=== PATIENT | male | born 1955 | race Caucasian/White ===

== ENCOUNTER → 2018-06-23 | Outpatient (CLI) | payer BC ==
[2016-02-15 19:42] VITALS: BP 128/81
[~2018-06-23] MED LIST: AMOX1TAB61 PO; ASPI-630 PO; HYDR12.58 PO; INSU100I11 SQ; INSU100I13 SQ; IOHEXOL 240 MG/ML 50ML VIAL. ONE; IOHEXOL 240 MG/ML 50ML VIAL. PO ONE; IOHEXOL 300 MG/ML 75 ML VIAL. IV ONE; LACT1CAP19 PO; LEVO500T59 PO; LISI1TAB7 PO; METR-34 PO; MULT-245 PO; SIMV40TA3 PO
--- NOTE | 2018-06-23 11:46 | RAD ---
CT of the abdomen and pelvis with contrast, 06/23/2018: HISTORY: Left lower quadrant pain, diverticulitis Multidetector CT imaging was performed following oral and IV administration of contrast. Comparison is made to a study from 02/14/2016. No hepatic abnormality is detected. The gallbladder is unremarkable. The pancreas shows no abnormality. The spleen is of normal size. There are 2 left renal cysts, the largest of which measures 3 cm and arises in the upper pole. There are 2 left intrarenal calculi. The largest of these lies in the lower pole collecting system and measures 1.5 cm. No right renal calculi are seen. There is no evidence of renal or ureteral obstruction. There is mild aortic calcific plaquing without evidence of aneurysm. No abdominal or pelvic adenopathy is seen. Again noted is moderate prostatic enlargement. The bowel loops are not dilated. There is mild streaky increased density in the paracolic fat related to the distal descending and proximal sigmoid colon. There are underlying diverticula. The appearance is compatible with inflammation due to diverticulitis. This has progressed since the previous study. No discrete paracolic fluid collection is seen to suggest abscess. No free air is evident in the abdomen or pelvis. A small thin-walled fluid collection is again noted in the upper pelvis on the right adjacent to distal ileal loops. It measures approximately 3.5 cm in greatest dimension and is unchanged in size as best demonstrated on the coronal views. Moderate scattered degenerative changes are present in the spine. There is mild unchanged loss of height of the L4 vertebral body. IMPRESSION: 1. Acute diverticulitis at the junction of the descending and sigmoid colon. 2. Stable small thin-walled fluid collection in the upper pelvis on the right with diagnostic considerations including an old seroma/hematoma or developmental cyst. 3. Nonobstructing left intrarenal calculi. 4. Moderate nonspecific prostatic enlargement. PQRS Compliance Statement: One or more of the following individualized dose reduction techniques were utilized for this examination: 1. Automated exposure control 2. Adjustment of the mA and/or kV according to patient size 3. Use of iterative reconstruction technique Electronically signed by: Otf Gracia MD (06/23/2018 11:43 AM) [facility]
== END | disposition home or self-care (01) ==
LOC: CT 08:42
PROVIDERS: ATTEND Nurse Practitioner Family
DX: N20.0 Calculus of kidney (principal); K57.32 Diverticulitis of large intestine without perforation or abscess without bleeding; N40.0 Benign prostatic hyperplasia without lower urinary tract symptoms; N28.1 Cyst of kidney, acquired
CPT/HCPCS: 74177; Q9966; Q9967

== ENCOUNTER 2018-06-24 13:33 | Inpatient (IN) | payer BC ==
[~2018-06-24] VITALS: Ht 193 cm; Wt 107.3 kg
[~2018-06-24 13:33] MED LIST changes: -AMOX1TAB61 PO; -INSU100I11 SQ; -INSU100I13 SQ; -IOHEXOL 240 MG/ML 50ML VIAL. ONE; -IOHEXOL 240 MG/ML 50ML VIAL. PO ONE; -IOHEXOL 300 MG/ML 75 ML VIAL. IV ONE; -LACT1CAP19 PO; -LISI1TAB7 PO; -MULT-245 PO
[2018-06-24 13:57] VITALS: BP 116/69
--- NOTE | 2018-06-24 14:28 | NUR ---
NSG NOTE; ADMISSION DIRECT ADMIT TO ROOM 107 AT 1342 VIA AMB ACCOMP BY FROM HOME. PT HAS HAD LEFT FLANK, LUQ ABD PAIN X 3 DAYS, WAS SEEN IN THE OFFICE YESTERDAY AND WAS SENT TO [facility] FOR A CT ABD PT WAS CALLED WITH THE RESULTS TODAY AND WAS SENT TO [facility] FOR AN INPT ADMISSION
[2018-06-24] MEDS ORDERED: MAG HYDROX/AL HYDROX/SIMETH 30 ML ORAL.SUSP PO PRN (14:45)
[2018-06-24] MEDS ORDERED: ACETAMINOPHEN 500 MG TABLET PO PRN (14:45)
[2018-06-24] MEDS ORDERED: ONDANSETRON PF 4 MG/2 ML VIAL. IV PRN (14:45)
[2018-06-24 14:55] LABS: BASO % 0 % (0-3); EOS # 0.1 x10^3/uL (0.0-0.7); EOS % 1 % (0-3); HEMATOCRIT 45.4 % (39.0-53.0); HEMOGLOBIN 15.3 g/dL (13.0-17.5); LYMPH # 1.1 x10^3/uL (1.0-4.8); LYMPH % 11 % (24-48); MEAN CORPUSCULAR HEMOGLOBIN 29 pg (25-35); MEAN CORPUSCULAR HGB CONC 34 g/dL (31-37); MEAN CORPUSCULAR VOLUME 86 fL (79-100); MONO # 0.8 x10^3/uL (0.0-1.1); MONO % 8 % (0-9); NEUT # 7.8 x10^3uL (1.8-7.7); NEUT % 79 % (31-73); PLATELET COUNT 276 x10^3/uL (140-400); RED CELL DISTRIBUTION WIDTH 13.2 % (11.5-14.5); WHITE BLOOD COUNT 9.8 x10^3/uL (4.0-11.0)
[2018-06-24 15:12] LABS: ALBUMIN 3.4 g/dL (3.4-5.0); ALBUMIN/GLOBULIN RATIO 0.8 (1.0-1.7); CALCIUM 9.1 mg/dL (8.5-10.1); CREATININE 0.7 mg/dL (0.7-1.3); GFR 114.6; POTASSIUM 4.2 mmol/L (3.5-5.1); TOTAL BILIRUBIN 0.8 mg/dL (0.2-1.0); TOTAL PROTEIN 7.7 g/dL (6.4-8.2)
[2018-06-24] MEDS: IV NORMAL SALINE 1,000ML 1,000 ML IV SCH (15:44)
[2018-06-24] MEDS ORDERED: DEXTROSE 50% 25 GM / 50ML DISP.SYRIN. IV PRN (15:45)
[2018-06-24] MEDS ORDERED: LISI1TAB7 PO (16:17)
[2018-06-24] MEDS ORDERED: METR-34 PO (16:21)
[2018-06-24] MEDS ORDERED: AMOX1TAB61 PO (16:21)
[2018-06-24] MEDS ORDERED: MULT-245 PO (16:21)
[2018-06-24] MEDS ORDERED: ZOLPIDEM 5 MG TABLET. PO PRN (17:00)
[2018-06-24] MEDS: INSULIN LISPRO 300 UNITS/3 ML INSULN.PEN. SQ SCH (17:00)
[2018-06-24 19:32] VITALS: BP 119/75
[2018-06-24] MEDS: SIMVASTATIN 40 MG TABLET. PO SCH (21:44)
[2018-06-24 22:50] VITALS: BP 116/75
[2018-06-25 02:08] LABS: HEMOGLOBIN A1C 12.9 % (4.8-5.6)
[2018-06-25] MEDS: IV NORMAL SALINE 1,000ML 1,000 ML IV SCH ×3 (04:32→20:45)
[2018-06-25 05:25] VITALS: BP 127/82
[2018-06-25 06:50] LABS: BASO # 0.1 x10^3/uL (0.0-0.2); BASO % 1 % (0-3); EOS # 0.2 x10^3/uL (0.0-0.7); EOS % 3 % (0-3); HEMATOCRIT 42.3 % (39.0-53.0); HEMOGLOBIN 14.5 g/dL (13.0-17.5); LYMPH # 1.7 x10^3/uL (1.0-4.8); LYMPH % 23 % (24-48); MEAN CORPUSCULAR HEMOGLOBIN 29 pg (25-35); MEAN CORPUSCULAR HGB CONC 34 g/dL (31-37); MEAN CORPUSCULAR VOLUME 85 fL (79-100); MONO # 0.8 x10^3/uL (0.0-1.1); MONO % 12 % (0-9); NEUT # 4.4 x10^3uL (1.8-7.7); NEUT % 61 % (31-73); PLATELET COUNT 258 x10^3/uL (140-400); RED BLOOD COUNT 4.96 x10^6/uL (4.30-5.70); WHITE BLOOD COUNT 7.2 x10^3/uL (4.0-11.0)
[2018-06-25 07:00] LABS: CALCIUM 8.7 mg/dL (8.5-10.1); CREATININE 0.7 mg/dL (0.7-1.3); GFR 114.6; POTASSIUM 4.3 mmol/L (3.5-5.1)
[2018-06-25] MEDS: MULTIVITAMIN with MINERAL TABLET. PO SCH (08:10)
[2018-06-25] MEDS: LISINOPRIL 20 MG TABLET PO SCH (08:10)
[2018-06-25] MEDS: ASPIRIN 81 MG TAB.CHEW PO SCH (08:10)
[2018-06-25] MEDS: hydroCHLOROthiazide 25 MG TABLET PO SCH (08:10)
[2018-06-25] MEDS: INSULIN LISPRO 300 UNITS/3 ML INSULN.PEN. SQ SCH ×3 (08:17→17:00)
[2018-06-25 10:44] VITALS: BP 123/77
--- NOTE | 2018-06-25 10:55 | PN ---
DATE: 06/25/2018 SUBJECTIVE: A 63-year-old male in with sigmoid diverticulitis and also new onset of diabetes. Sugar is up in the 300s and his A1c of 12.5. The patient is receiving IV antibiotic therapy. He is feeling a little bit better this morning. We are getting the sugars down in the lower 200s with insulin of course. He is also getting a great deal of fluid as he was markedly dehydrated. See labs from the office in his H and P. Otherwise, I had a long discussion with him and his about diabetes, diverticulitis, and so forth. I answered all their questions. OBJECTIVE: VITAL SIGNS: The patient's blood pressure this morning 127/82, respiratory rate 18, pulse 61, afebrile. GENERAL: The patient is alert and oriented. LUNGS: Diminished, but clear. CARDIOVASCULAR: Regular sinus rhythm. ABDOMEN: Soft, less tender than he was yesterday. EXTREMITIES: No clubbing, cyanosis, or edema. NEUROLOGIC: Intact. The patient says he has been having this problem since Lazarus time of weight loss and polyuria. In any case, the patient is making good progress. IMPRESSION: Acute diverticulitis, new onset of diabetes, ketonuria. PLAN: Continue to monitor the patient accordingly to make further evaluation on him as indicated with IV antibiotic therapy, insulin, diabetic teaching. NEVILLE FITZPATRICK MD DR: ALEXEY/meaghan JOB#: [id number] / [id number]
[2018-06-25] MEDS: INSULIN GLARGINE 300 UNITS/3 ML INSULN.PEN. SQ SCH ×2 (12:32→21:28)
[2018-06-25 15:19] VITALS: BP 121/77
[2018-06-25 19:20] VITALS: BP 116/76
[2018-06-25] MEDS: SIMVASTATIN 40 MG TABLET. PO SCH (21:18)
[2018-06-25] MEDS: LACTOBACILLUS RHAMNOSUS GG 1 CAPSULE. PO SCH (21:18)
[2018-06-26 00:13] VITALS: BP 109/77
[2018-06-26] MEDS: IV NORMAL SALINE 1,000ML 1,000 ML IV SCH (05:16)
[2018-06-26 07:10] VITALS: BP 111/74
[2018-06-26 08:35] VITALS: BP 111/74
[2018-06-26] MEDS: LISINOPRIL 20 MG TABLET PO SCH (08:35)
[2018-06-26] MEDS: ASPIRIN 81 MG TAB.CHEW PO SCH (08:35)
[2018-06-26] MEDS: LACTOBACILLUS RHAMNOSUS GG 1 CAPSULE. PO SCH (08:35)
[2018-06-26] MEDS: hydroCHLOROthiazide 25 MG TABLET PO SCH (08:35)
[2018-06-26] MEDS: MULTIVITAMIN with MINERAL TABLET. PO SCH (08:35)
[2018-06-26] MEDS: INSULIN GLARGINE 300 UNITS/3 ML INSULN.PEN. SQ SCH (08:36)
[2018-06-26] MEDS: INSULIN LISPRO 300 UNITS/3 ML INSULN.PEN. SQ SCH (08:37)
[2018-06-26] MEDS ORDERED: INSU100I13 SQ (10:12)
[2018-06-26] MEDS ORDERED: LACT1CAP19 PO (10:12)
[2018-06-26] MEDS ORDERED: INSU100I11 SQ (10:12)
[2018-06-26] MEDS ORDERED: LEVO500T59 PO (10:35)
--- NOTE | 2018-06-26 10:38 | NUR ---
Patient D/C home with self care. Patient is stable at time of D/C. IV removed d/c teaching given to patient. Patient is ambulates off unit accompanied by .
--- NOTE | 2018-06-26 12:11 | DS ---
DATE OF DISCHARGE: 06/26/2018 HOSPITAL COURSE: A 63-year-old male came in with left lower quadrant pain, was also noted to have sugars and these levels 400 range, which was totally new for him. He had an A1c of 12.9 and his C-peptide was 2.0. His sugars came down with the subcutaneous insulin because of his diverticulitis being on antibiotic. We did not start him on oral medications because of him being on the diverticulitis type protocol. Regular rest is bowel and the like and seeing if that infection came down his sugar will come down and that he made good progress during the rest of his hospitalization. Electrolytes remained stable. Kidney function was normal. The patient made good progress during the rest of his hospitalization, was discharged home and he will be on oral antibiotics. See MRAD and insulin, which were given to him from the office. IMPRESSION: Diverticulitis at the junction of the descending and sigmoid colon, prostate enlargement, type 2 diabetes new onset, dehydration, so these labs were done in the office just before admission. Specific gravity was greater than 1.037. In any case, the patient made good progress during the rest of his hospitalization and as a result of that he was able to go home. See MRAD. Decreased activity. He will be on a diabetic diet, sliding scale for now and then soft diet and decreased activity. NEVILLE FITZPATRICK MD DR: ALEXEY/meaghan JOB#: [id number] / [id number]
== END 2018-06-26 10:38 | disposition home or self-care (01) | DRG 392 ==
LOC: 1 SOUTH 13:33
PROVIDERS: ADMIT Family Medicine; ATTEND Family Medicine
DX: K57.32 Diverticulitis of large intestine without perforation or abscess without bleeding (principal); G89.29 Other chronic pain; I10 Essential (primary) hypertension; E11.9 Type 2 diabetes mellitus without complications; E86.0 Dehydration; N40.0 Benign prostatic hyperplasia without lower urinary tract symptoms; Z80.0 Family history of malignant neoplasm of digestive organs
CPT/HCPCS: 36415; 74177; 80048; 80053; 82947; 83036; 83605; 84681; 85025; J1815; J1956; J3490; Q9966; Q9967; J7030